=== PATIENT | male | born 1960 | race Caucasian/White ===

== ENCOUNTER 2017-02-10 16:03 | Emergency (ER) | payer BC ==
[2017-02-10] MEDS ORDERED: ceFAZolin SODIUM/DEXTROSE,ISO 2 GM/50 ML BAG IV ONE (16:16)
--- NOTE | 2017-02-10 16:33 | ERNOTE ---
Medical Problem HPI - General Chief Complaint: Laceration Time Seen by Provider: 02/10/17 16:12 Source: patient, family - Immun/Allergies/Home Medications Immunizations: IMMUNIZATION HX Immunizations Up to Date Yes History of Influenza Vaccine Yes Allergies/Adverse Reactions: Allergies Penicillins Allergy (Verified 02/10/17 16:15) Home Medications: HOME MEDICATIONS NK [No Home Medication] 02/10/17 [Last Taken Unknown] - History of Present History Narrative: Patient was working with a [email or web address] saw and it inadvertently rebounded and caused an extensive laceration to the right anterior morris. Patient appears to have a laceration down to the bone and has exposed the tendons. The pain appears to be moderate in intensity. Timing: constant Severity: moderate Review of Systems - Review of Systems Constitutional: Present: See HPI EYE: Present: no symptoms reported ENT: Present: no symptoms reported Respiratory: Present: no symptoms reported Cardiology: Present: no symptoms reported Gastrointestinal/Abdominal: Present: no symptoms reported Genitourinary: Present: no symptoms reported Musculoskeletal: Present: See HPI Skin: Present: no symptoms reported Neurological: Present: no symptoms reported Endocrine: Present: no symptoms reported Hematologic/Lymphatic: Present: no symptoms reported Psych: Present: no symptoms reported - Patient's Past Medical History Patient History - Medical: No pertinent hx Patient History - Cancer: No Hx of Cancer Patient History - Surgical Procedures: Other Patient History - Other: None - Social History Living Situations: spouse Psych History: No pertinent hx Smoking Status: Current every day smoker Alcohol Use: rarely Drug Use: none - Immunizations Immunizations Up to Date: Yes History of Influenza Vaccine: Yes Physical Exam - Physical Exam General Appearance: Present: wd/wn, alert, moderate distress Eye Exam: Normal inspection: bilateral, PERRL: bilateral Ears, Nose, Throat: Present: normal ENT inspection, H, normal pharynx Neck: Present: normal inspection, nontender Respiratory: Present: no respiratory distress, normal breath sounds, no accessory muscle use, chest nontender, lungs clear Cardiovascular/Chest: Present: regular rate, rhythm, no murmur, normal peripheral pulses Gastrointestinal/Abdominal: Present: normal bowel sounds, nontender, nondistended, soft, no organomegaly Rectal Exam: Present: deferred Back Exam: Present: normal inspection, normal range of motion Extremity Exam: Present: normal range of motion, no edema, other - patient has a 10 cm laceration to the right morris which is open to the extent of approximately 2.5 cm laceration appears to be down to the bone with exposed tendons. Neurological Exam: Present: alert, oriented, normal mood/affect Skin Exam: Present: normal color, warm/dry Lymphatic Exam: Present: no adenopathy ED Progress - Vital Signs Patient's Vital Signs:: I have reviewed the patient's vital signs. Vital Signs: Vital Signs 02/10/17 16:08 Pulse Rate 87 Respiratory 18 Rate Blood Pressure 131/84 O2 Sat by Pulse 97 Oximetry - Progress/Reassessment Chief Complaint: Laceration Plan - Plan Plan: I contacted the on-call surgeon for investigation of the wound, we did put 30 mL 's of Betadine and a liter of normal saline and irrigated the wound out. He was given 2 g of Ancef IV and Dr. Martinez is here to affect the closure of the wound. Departure - Departure Clinical Impression: Laceration Disposition: Home self-care Condition: Good Instructions: Laceration Care, Adult, [id number] Referrals: Cristobal Martinez MD [Associate] -
[2017-02-10] MEDS ORDERED: LIDOCAINE HCL 20 ML VIAL ONE (16:47)
[2017-02-10 16:51] VITALS: BP 117/66
--- NOTE | 2017-02-10 17:35 | CONS ---
HPI - General Date of Service: 02/10/17 Narrative: Got a chainsaw kickback to his right distal anterior leg. No active bleeding. UTD on tetanus. Has received 2 gm ancef. Nurses have copiously irrigated the wound with dilute betadine solution. - History of Present Illness Allergies/Adverse Reactions: Allergies Penicillins Allergy (Verified 02/10/17 16:15) Home Medications: Home Medications Medication Instructions Recorded Last Taken NK [No Home Medication] 02/10/17 Unknown - Narrative Narrative: FH: non-contributory - Patient's Past Medical History Patient History - Medical: No pertinent hx Patient History - Cancer: No Hx of Cancer Patient History - Surgical Procedures: Other Patient History - Other: None - Social History Living Situations: spouse Psych History: No pertinent hx Smoking Status: Current every day smoker Alcohol Use: rarely Drug Use: none - Immunizations Immunizations Up to Date: Yes History of Influenza Vaccine: Yes Review of Systems - Review of Systems Misc: All systems neg except as marked Physical Examination - Exam Vital Signs: Vital Signs - Last Taken Temp Pulse 90 02/10/17 16:47 Resp 12 02/10/17 16:47 BP 117/66 02/10/17 16:47 Pulse Ox 96 02/10/17 16:47 O2 Oxygen Delivery Method Room Air Constitutional: Present: Alert, Oriented x3, Cooperative, Well developed, Well nourished, No distress ENT Exam: Present: normal ENT inspection Eye Exam: bilateral eye: normal inspection Neck: Present: non-tender, full range of motion, supple, normal inspection, trachea midline. Absent: lymphadenopathy (R), lymphadenopathy (L) Respiratory: Present: lungs clear, normal breath sounds, no respiratory distress Cardiovascular/Chest: Present: regular rate, rhythm, no murmur, other - Right DP intact Abdomen: Present: Normal bowel sounds, soft, nontender Extremity: Present: other - 10x2.5 jagged laceration right distal leg. Transverse crural ligament is transected and extensor hallucis and extensor digitorum are exposed but completely intact. Full flexion and extension of digits. No sensory deficit below wound. CMS intact. Neurologic: Present: no motor/sensory deficits, oriented x 3 Appearance: Present: appropriate appearance, appropriate insight Eye contact: Present: cooperative Thoughts: Present: normal thought pattern - Results and Findings: Narrative: A: Traumatic wound right distal leg P: Plan irrigation/debridement/closure under local anesthesia here in the ER. Options, risks, and benefits reviewed fully. He seems to understand, asks appropriate questions, and desires to proceed.
--- NOTE | 2017-02-10 17:46 | OR ---
Operative Report - Dictated Report Narrative: Date: 02/10/2017 Preop diagnosis: Traumatic wound 10x2.5cm skin, subq, fascia and muscle Postop diagnosis: Same Procedure: Debridement of skin, subq, and muscle. Staff surgeon: Cristobal Martinez MD Description of procedure: This wound has been copiously irrigated with dilute betadine solution by the ER nurses. A field block was performed with 30cc 1% xylocaine plain. The wound was then scrubbed with a hibiclens scrub brush and prepped and draped in a sterile fashion. Anesthesia allowed more careful inspection of structures. There was no active bleeding. This was not a perpendicular cut and therefore the beveled skin margins were debrided with scissors. The Transverse crural ligament and investing fascia were divided completely exposing the extensor hallucis which was completely intact. Laterally to this there was a partially exposed extensor digitorum with some proximal devitalized muscle tissue that was excised with scissors. There was no particulate matter encountered in the wound. The investing fascia and crural ligament was approximated with a running lock- stitch of 2-0 vicryl. The incision was then approximated with maria esther. A sterile dressing was applied. The patient tolerated the procedure well without apparent complications. The patient was dismissed with a prescription for Hoyt 5/325 1-2 po q 4 hr PRN #60, and Keflex 500 mg po QID x 10 days. He is to follow -up in 14 days. Wound instructions were given.
== END 2017-02-10 17:36 | disposition home or self-care (01) ==
LOC: ER 16:03
PROC: 0HQKXZZ Repair Right Lower Leg Skin, External Approach (ICD-10-PCS; principal; 2017-02-10)
DX: S81.821A Laceration with foreign body, right lower leg, initial encounter (principal); W29.3XXA Contact with powered garden and outdoor hand tools and machinery, initial encounter; F17.200 Nicotine dependence, unspecified, uncomplicated